=== PATIENT | male | born 2000 | race Caucasian/White ===

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

== ENCOUNTER → 2021-12-28 | Outpatient (REF) | payer OTHER ==
[~2021-12-28] MED LIST changes: -LISI-538; +LISI20TA33
[2021-12-28 23:01] LABS: RSV AMPLIFICATION NEGATIVE (NEGATIVE)
== END ==
LOC: M LAB REF 19:28
PROVIDERS: ATTEND Physician Assistant
DX: J06.9 Acute upper respiratory infection, unspecified (principal)

== ENCOUNTER → 2024-10-01 | Outpatient (CLI) | payer OTHER ==
[~2024-10-01] MED LIST changes: -DOXY-350 PO; +DOXY-440 PO; +ONDA-282 PO; -ONDA4TAB6 PO
== END ==
LOC: M WUC 09:47
PROVIDERS: ATTEND Internal Medicine
DX: M79.672 Pain in left foot (principal)